=== PATIENT | female | born 1955 | race Caucasian/White ===

== ENCOUNTER → 2017-12-25 | Outpatient (CLI) | payer OTHER ==
[~2017-12-25] MED LIST: ALBU8.5H IH; BECL8.7A2 INH; CHOL200022 PO; CPAP; CYA1000 PO; FLU44R INH; FLUT1AER INH; FOLI-68 PO; FURO-45 PO; LOR5/325 PO; METH4TAB66 PO; MOMR ENA; MULT1TAB64 PO; NO ROUTINE MEDS; OMEG-11 PO
== END ==
LOC: LAB 17:03
PROVIDERS: ATTEND Internal Medicine
DX: R60.0 Localized edema (principal); I27.20 Pulmonary hypertension, unspecified
CPT/HCPCS: 36415; 82310; 82374; 82435; 82565; 82947; 83880; 84132; 84295; 84520

== ENCOUNTER → 2018-11-17 | Outpatient (CLI) | payer OTHER ==
[~2018-11-17] MED LIST changes: +CHOL200018 PO; -CHOL200022 PO; +OXYGENHOME INH
== END ==
LOC: LAB 07:34
PROVIDERS: ATTEND Internal Medicine Cardiovascular Disease
DX: Z00.00 Encounter for general adult medical examination without abnormal findings (principal); E66.3 Overweight; I27.20 Pulmonary hypertension, unspecified
CPT/HCPCS: 36415; 82040; 82247; 82310; 82374; 82435; 82565; 82947; 84075; 84132; 84155; 84295; 84450; 84460; 84520

== ENCOUNTER → 2019-03-06 | Outpatient (CLI) | payer OTHER | LOC: LAB 09:02 | PROVIDERS: ATTEND Emergency Medicine | DX: E53.8 Deficiency of other specified B group vitamins (principal); D55.9 Anemia due to enzyme disorder, unspecified | CPT/HCPCS: 36415; 82306; 82607 ==

== ENCOUNTER → 2019-04-23 | Outpatient (CLI) | payer OTHER ==
[~2019-04-23] MED LIST changes: +LOSA25TA57 PO
== END ==
LOC: LAB 15:13
PROVIDERS: ATTEND Emergency Medicine
DX: I10 Essential (primary) hypertension (principal)
CPT/HCPCS: 36415; 82310; 82374; 82435; 82565; 82947; 84132; 84295; 84520